=== PATIENT | male | born 1980 | race Two or more races ===

== ENCOUNTER 2016-07-27 12:26 | Inpatient (IN) | payer BC ==
[2016-07-27 13:59] VITALS: BMI 20.9
--- NOTE | 2016-07-27 15:47 | HP ---
Admission [facility] Chief Complaint: REHAB TX FOR COCAINE DEPENDENCE Allergies/Adverse Reactions: Allergies Allergy/AdvReac Type Severity Reaction Status Date / Time No Known Allergies Allergy Verified 07/27/16 14:38 History of Present Illness: 36 Y/O H/M WITH A HX OF COCAINE DEPENDENCE SEEKING REHAB TX. Exam Limitations: No Limitations - Ebola screening Have you traveled outside of the country in the last 21 days: No Have you had contact with anyone from an Ebola affected area: No Have you been sick,other than usual withdrawal symptoms: No Do you have a fever: No - Review of Systems Constitutional: Changes in sleep, Unintentional Wgt. Loss EENT: reports: No Symptoms Reported Respiratory: reports: No Symptoms reported Cardiac: reports: No Symptoms Reported GI: reports: Poor Fluid Intake : reports: No Symptoms Reported Musculoskeletal: reports: Muscle Weakness (FOOT DROP BOTH FEET. USES CANE.), Other (WEARS BRACE ON BOTH LOWER LEGS.) Integumentary: reports: No Symptoms Reported Neuro: reports: Unsteady Gait (USES CANE) Endocrine: reports: No Symptoms Reported Hematology: reports: No Symptoms Reported Psychiatric: reports: Orientated x3, Anxious, Depressed Other Systems: Reviewed and Negative Patient History - Patient Medical History Hx Anemia: No Hx Asthma: No Hx Chronic Obstructive Pulmonary Disease (COPD): No Hx Cancer: No Hx Cardiac Disorders: No Hx Congestive Heart Failure: No Hx Hypertension: No Hx Hypercholesterolemia: No Hx Pacemaker: No HX Cerebrovascular Accident: No Hx Seizures: No Hx Dementia: No Hx Diabetes: No Hx Gastrointestinal Disorders: No Hx Liver Disease: No Hx Genitourinary Disorders: No Hx Sexually Transmitted Disorders: No Hx Renal Disease (ESRD): No Hx Thyroid Disease: No Hx Human Immunodeficiency Virus (HIV): No (NEGATIVE HX; 10/14 LAST) Hx Hepatitis C: No Hx Depression: Yes Hx Suicide Attempt: No Hx Schizophrenia: No Other Medical History: HX FOOT DROP, BILATERAL--USES CANE. - Patient Surgical History Past Surgical History: No - PPD History Previous Implant?: Yes Documented Results: Negative w/o proof Date: 11/03/13 PPD to be Administered?: Yes - Reproductive History Patient is a Female of Child Bearing Age (11 -55 yrs old): No (MALE) - Smoking Cessation Smoking history: Current every day smoker Have you smoked in the past 12 months: Yes Aproximately how many cigarettes per day: 20 Cigars Per Day: 0 Hx Chewing Tobacco Use: No Initiated information on smoking cessation: Yes 'Breaking Loose' booklet given: 07/27/16 - Substance & Tx. History Hx Alcohol Use: No (DENIES) Hx Substance Use: Yes (COCAINE) Substance Use Type: Cocaine Hx Substance Use Treatment: Yes ([facility]) - Substances Abused Cocaine Route: Inhalation Frequency: Daily Amount used: $400 Age of first use: Date of Last Use: 07/19/16 Family Disease History - Family Disease History Family Disease History: Diabetes: Mother, Other: Mother Admission Physical Exam [facility] - Vital Signs Vital Signs: Vital Signs - 24 hr 07/27/16 13:57 Temperature 97.3 F L Pulse Rate 199 H Respiratory 20 Rate Blood Pressure 144/79 - Physical General Appearance: Yes: No Apparent Distress, Irritable, Anxious HEENTM: Yes: EOMI, Normocephalic, SHANIQUE, Pharynx Normal Respiratory: Yes: Chest Non-Tender, Lungs Clear, Normal Breath Sounds, No Respiratory Distress Neck: Yes: Supple, Trachea in good position Breast: Yes: Breast Exam Deferred Cardiology: Yes: Regular Rhythm, Regular Rate, S1, S2 Abdominal: Yes: Normal Bowel Sounds, Non Tender, Flat, Soft Genitourinary: Yes: Other (N/C) Back: Yes: Within Normal Limits Musculoskeletal: Yes: full range of Motion, Gait Steady Extremities: Yes: Normal Range of Motion, Non-Tender Neurological: Yes: Within Normal Limits, manager night II-XII NML intact, Fully Oriented, Alert, Other (FOOT DROP,BILATERAL) Integumentary: Yes: Dry, Warm Lymphatic: Yes: Within Normal Limits - Diagnostic (1) Foot drop, bilateral Current Visit: Yes Status: Chronic (2) Nicotine dependence Current Visit: Yes Status: Acute Qualifiers: Nicotine product type: cigarettes Substance use status: in withdrawal Qualified Code(s): F17.213 - Nicotine dependence, cigarettes, with withdrawal (3) Weight decreased Current Visit: Yes Status: Chronic (4) Cocaine dependence, uncomplicated Current Visit: Yes Status: Chronic (5) Use of cane as ambulatory aid Current Visit: Yes Status: Chronic (6) Braces as ambulation aid Current Visit: Yes Status: Chronic Cleared for Admission [facility] - Detox or Rehab Claeared for Rehab Admission: Yes [facility] Breath Alcohol Content Breath Alcohol Content: 0 Urine Drug Screen - Results Drug Screen Negative: No Urine Drug Screen Results: TORITO-Cocaine, TCA-Tricyclic Antidepress
[2016-07-27] MEDS ORDERED: IBUPROFEN 400 MG TABLET (FP) PO PRN (15:56)
[2016-07-27] MEDS ORDERED: NICOTINE POLACRILEX 2 MG GUM BC PRN (15:56)
[2016-07-27] MEDS ORDERED: MAGNESIUM CITRATE 300 ML BOTTLE PO PRN (15:56)
[2016-07-27] MEDS ORDERED: ACETAMINOPHEN 325 MG TABLET (FP) PO PRN (15:56)
[2016-07-27] MEDS ORDERED: MAGNESIUM HYDROX 2400MG/30ML ORAL SUSPENSION 30 ML CUP PO PRN (15:56)
[2016-07-27] MEDS ORDERED: P-EPHED 60MG/TRIPROLIDI 2.5MG TABLET PO PRN (15:56)
[2016-07-27] MEDS ORDERED: MAG HYDROX/AL HYDROX/SIMETH 30 ML UNIT-DOSE CUP PO PRN (15:56)
[2016-07-27] MEDS ORDERED: guaiFENesin/D-METHORPHAN HB 10 ML UNIT-DOSE CUPS PO PRN (15:56)
[2016-07-27] MEDS ORDERED: hydrOXYzine PAMOATE 25 MG CAPSULE (FP) PO PRN (15:56)
[2016-07-27] MEDS ORDERED: LOPERAMIDE HCL 2 MG CAPSULE PO PRN (15:56)
[2016-07-27] MEDS ORDERED: diphenhydrAMINE HCL 50 MG CAPSULE PO PRN (15:56)
[2016-07-27] MEDS ORDERED: MENTHOL/PHENOL 1 EACH UD MM PRN (15:56)
--- NOTE | 2016-07-27 20:18 | PN ---
S Progress Note Note: Psychiatry Attending intervention analyst's note : Called to initiate orders. Medication requested :seroquel 300 mg po hs. 36 y/o male addressing cocaine dependence. S report appreciated.Pharmacy claims revisited. Brief contact,via telephone,with the patient.Good historian. Denies history of psychiatric hospitalizations.Followed at [facility]. As per patient,seroquel is prescribed to address refractory insomnia. Last took the medication three days ago.Sees his psychiatrist monthly. Medical co-morbidities reviewed with the patient. Dose of seroquel confirmed (filled script @ [facility] on 07/09/16). Intervention : seroquel 150 mg po hs.Ordered.Patient is eager to resume his medication. Made aware of the increase risk for falls/sedation. Herbie agrees with reduced dose. Fall precautions.Discussed with nurse in charge.
[2016-07-27] MEDS: NICOTINE 14 MG/24 HOURS TOPICAL PATCH TD SCH (20:47)
[2016-07-27] MEDS: THIAMINE HCL 100 MG TABLET (FP) PO SCH (21:04)
[2016-07-27] MEDS: QUEtiapine FUMARATE 100 MG TABLET (FP) PO SCH (21:05)
[2016-07-27] MEDS ORDERED: PT OWN MED DRAWER 7, Y5N ONE (22:53)
[2016-07-28 03:58] LABS: URINE APPEARANCE CLEAR; URINE BILIRUBIN NEGATIVE (NEGATIVE); URINE BLOOD NEGATIVE (NEGATIVE); URINE COLOR YELLOW; URINE GLUCOSE (UA) NEGATIVE (NEGATIVE); URINE KETONE 1+ (NEGATIVE); URINE LEUK ESTERASE NEGATIVE (NEGATIVE); URINE NITRITE NEGATIVE (NEGATIVE); URINE PROTEIN NEGATIVE (NEGATIVE); URINE UROBILINOGEN NEGATIVE E.U./dl (0.2-1.0)
--- NOTE | 2016-07-28 06:51 | HP ---
Psychiatrist Admission - Data Date of interview: 07/28/16 Admission source: [facility] Identifying data: This is the second [facility] admission for this 36 years old single male, unemployed on SSI, homeless seeking rehab treatment for cocaine Medical History: Significant for history of bilateral foot drop(ambulate with a cane) to [facility] in 2006. Smokes cigarettes 1ppd Psychiatric History: Reports that he has been receiving outpatient treatment for depression since 2012 at [facility]. He is currently precribed Seroquel 300 mg po HS. Denies history of previous psychiatric hospitalization or suicidal attempt. At present, denies feeling depressed and suicidal Physical/Sexual Abuse/Trauma History: Denies history of physical/sexual abuse as well as DV relationship Additional Comment: Denies criminal history Vital Signs: Vital Signs - 24 hr 07/27/16 07/28/16 07/28/16 13:57 00:30 03:30 Temperature 97.3 F L Pulse Rate 199 H Respiratory 20 18 18 Rate Blood Pressure 144/79 Allergies/Adverse Reactions: Allergies Allergy/AdvReac Type Severity Reaction Status Date / Time No Known Allergies Allergy Verified 07/27/16 14:38 Date of last physical exam: 07/27/16 Concur with the findings of this exam: Yes - Substance Abuse/Tx History Hx Alcohol Use: No Hx Substance Use: Yes Substance Use Type: Cocaine (Started using cocaine at age 29, consumes$400 worth daily. Last used on 07/19/16) Hx Substance Use Treatment: Yes (One previous inpt rehab @ [facility]) - Admission Criteria Previous failed treatment: No Poor recovery environment: Yes Comorbidities: Yes Lacks judgement: Yes Mental Status Exam - Mental Status Exam Alert and Oriented to: Time, Place, Person Cognitive Function: Fair Patient Appearance: Well Groomed Patient Behavior: Cooperative Speech Pattern: Clear Voice Loudness: Normal Thought Process: Intact Thought Disorder: Not Present Hallucinations: Denies Suicidal Ideation: Denies Homicidal Ideation: Denies Insight/Judgement: Fair Sleep: Poorly Appetite: Good Muscle strength/Tone: Normal Gait/Station: Other (Walks with a cane due to bilateral foot drop) Psychiatric Findings - Problem List ([place] 1, 2,3) (1) Cocaine dependence, uncomplicated Current Visit: Yes Status: Chronic (2) Nicotine dependence Current Visit: Yes Status: Acute Qualifiers: Nicotine product type: cigarettes Substance use status: in withdrawal Qualified Code(s): F17.213 - Nicotine dependence, cigarettes, with withdrawal (3) Foot drop, bilateral Current Visit: Yes Status: Chronic (4) Use of cane as ambulatory aid Current Visit: Yes Status: Chronic (5) MDD (major depressive disorder), recurrent episode Current Visit: Yes Status: Acute - Initial Treatment Plan Initial Treatment Plan: 1) Continue Seroquel 300 mg po HS. 2) Monitor progress
[2016-07-28 10:05] LABS: MCH 28.9 pg (25.7-33.7); MCHC 32.4 g/dl (32.0-35.9); MEAN CELL VOLUME 89.2 fl (80-96); MEAN PLT VOLUME 8.5 fl (7.5-11.1); PLATELET COUNT 202 K/MM3 (134-434); RDW 14.4 % (11.9-15.9); WHITE BLOOD COUNT 5.4 K/mm3 (4.0-10.0)
[2016-07-28 10:35] LABS: ALBUMIN 3.4 g/dl (3.4-5.0); ALK PHOS 61 U/L (45-117); ANION GAP 12 (8-16); BILIRUBIN,TOTAL 0.3 mg/dL (0.2-1.0); CALCIUM 8.5 mg/dL (8.5-10.1); CO2 23 mmol/L (21-32); CREATININE 1.1 mg/dL (0.7-1.3); GLUCOSE,RANDOM 137 mg/dL (74-106); SGOT/AST 10 U/L (15-37); SGPT/ALT 16 U/L (12-78); TOT PROT 5.5 g/dl (6.4-8.2)
[2016-07-28] MEDS: NICOTINE 14 MG/24 HOURS TOPICAL PATCH TD SCH (10:50)
[2016-07-28] MEDS: PRENATAL VITAMINS W/ FOLIC ACID TABLET (FP) PO SCH (10:50)
[2016-07-28 12:42] LABS: HIV 1 & 2 AB NEGATIVE; HIV 1 AGp24 NEGATIVE
--- NOTE | 2016-07-28 13:41 | EKG ---
Test Reason : Blood Pressure : / mmHG Vent. Rate : 074 BPM Atrial Rate : 074 BPM P-R Int : 132 ms QRS Dur : 082 ms QT Int : 368 ms P-R-T Axes : 060 022 038 degrees QTc Int : 408 ms NORMAL SINUS RHYTHM NORMAL ECG WHEN COMPARED WITH ECG OF 28-JUL-2016 04:46, NO SIGNIFICANT CHANGE WAS FOUND Confirmed by BAM CEBALLOS MD ([id number]) on 07/28/2016 1:40:39 PM Referred By: Confirmed By:BAM CEBALLOS MD
--- NOTE | 2016-07-28 13:42 | EKG ---
Test Reason : Blood Pressure : / mmHG Vent. Rate : 068 BPM Atrial Rate : 068 BPM P-R Int : 134 ms QRS Dur : 076 ms QT Int : 396 ms P-R-T Axes : 059 048 051 degrees QTc Int : 421 ms SINUS RHYTHM WITH MARKED SINUS ARRHYTHMIA ST ELEVATION, CONSIDER EARLY REPOLARIZATION BORDERLINE ECG NO PREVIOUS ECGS AVAILABLE Confirmed by BAM CEBALLOS MD ([id number]) on 07/28/2016 1:41:48 PM Referred By: Confirmed By:BAM CEBALLOS MD
[2016-07-28 15:50] LABS: SICKLE CELL SCREEN NEGATIVE (NEGATIVE)
[2016-07-28] MEDS ORDERED: QUEtiapine FUMARATE 50 MG TABLET PO SCH (21:36)
[2016-07-28] MEDS: THIAMINE HCL 100 MG TABLET (FP) PO SCH (21:38)
[2016-07-28] MEDS: QUEtiapine FUMARATE 100 MG TABLET (FP) PO SCH (21:38)
[2016-07-29 06:45] VITALS: BP 106/62; PULSE 73; TEMP 97.3
[2016-07-29] MEDS: NICOTINE 14 MG/24 HOURS TOPICAL PATCH TD SCH (10:28)
[2016-07-29] MEDS: PRENATAL VITAMINS W/ FOLIC ACID TABLET (FP) PO SCH (10:28)
[2016-07-29] MEDS: THIAMINE HCL 100 MG TABLET (FP) PO SCH (21:45)
[2016-07-29] MEDS ORDERED: QUEtiapine FUMARATE 300 MG TABLET PO SCH (22:00)
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
== END 2016-07-30 09:50 | disposition left against medical advice (07) | DRG 770 ==
LOC: YASAS 12:26 → Y3W 17:48
PROVIDERS: ADMIT Psychiatry & Neurology Psychiatry; ATTEND Psychiatry & Neurology Psychiatry
PROC: HZ42ZZZ Group Counseling for Substance Abuse Treatment, Cognitive-Behavioral (ICD-10-PCS; principal; 2016-07-27)
DX: F14.20 Cocaine dependence, uncomplicated (principal); F17.213 Nicotine dependence, cigarettes, with withdrawal; F33.9 Major depressive disorder, recurrent, unspecified; M21.372 Foot drop, left foot; M21.371 Foot drop, right foot; R26.2 Difficulty in walking, not elsewhere classified; Z99.89 Dependence on other enabling machines and devices
CPT/HCPCS: 36415; 80053; 81003; 85027; 85660; 86593; 87389; 93005; 93010